=== PATIENT | female | born 1985 | race Caucasian/White ===

== ENCOUNTER 2020-04-02 11:14 | Outpatient (REF) | payer OTHER, SELFPAY ==
--- NOTE | 2020-04-02 11:23 | XR_ITS ---
EXAMINATION: LEFT ANKLE AND LEFT FOOT. CLINICAL INFORMATION: Pain left foot and left ankle appear COMPARISON: None TECHNIQUE: Left foot 3 views. Left ankle 2 views. FINDINGS: LEFT FOOT: There is no visible fracture, dislocation or subluxation seen. The ankle mortise and subtalar joints are normal. The soft tissues are normal. LEFT ANKLE: The ankle mortise and subtalar joints are normal. There is no abnormal joint effusion. No loose body seen. XR/XR foot LT min 3V IMPRESSION: Unremarkable left foot exam. Unremarkable left ankle exam.
--- NOTE | 2020-04-02 11:24 | XR_ITS ---
EXAMINATION: LEFT ANKLE AND LEFT FOOT. CLINICAL INFORMATION: Pain left foot and left ankle appear COMPARISON: None TECHNIQUE: Left foot 3 views. Left ankle 2 views. FINDINGS: LEFT FOOT: There is no visible fracture, dislocation or subluxation seen. The ankle mortise and subtalar joints are normal. The soft tissues are normal. LEFT ANKLE: The ankle mortise and subtalar joints are normal. There is no abnormal joint effusion. No loose body seen. XR/XR ankle LT min 3V IMPRESSION: Unremarkable left foot exam. Unremarkable left ankle exam.
== END 2020-04-02 11:15 | disposition home or self-care (01) ==
LOC: HO.XRAY 11:14
PROVIDERS: PCP Internal Medicine; Visit Provider Internal Medicine
DX: M79.672 Pain in left foot (principal)
CPT/HCPCS: 73610; 73630

== ENCOUNTER 2020-04-09 07:16 | Outpatient (REF) | payer OTHER, SELFPAY | END 2020-04-09 07:17 | disposition home or self-care (01) | LOC: HO.LAB 07:16 | PROVIDERS: Visit Provider Internal Medicine | DX: Z20.822 Contact with and (suspected) exposure to COVID-19 (principal) | CPT/HCPCS: 36415; C9803; U0003; U0005 ==

== ENCOUNTER 2020-04-13 11:51 | Outpatient (REF) | payer OTHER, SELFPAY | END 2020-04-13 11:52 | disposition home or self-care (01) | LOC: HO.LAB 11:51 | PROVIDERS: Visit Provider Internal Medicine | DX: Z20.822 Contact with and (suspected) exposure to COVID-19 (principal) | CPT/HCPCS: 36415; C9803; U0003; U0005 ==

== ENCOUNTER 2020-04-27 11:09 | Outpatient (REF) | payer OTHER, SELFPAY | END 2020-04-27 11:10 | disposition home or self-care (01) | LOC: HO.LAB 11:09 | PROVIDERS: PCP Internal Medicine; Visit Provider Internal Medicine | DX: Z20.822 Contact with and (suspected) exposure to COVID-19 (principal) | CPT/HCPCS: 36415; C9803; U0003; U0005 ==

== ENCOUNTER 2020-05-21 09:23 | Outpatient (REF) | payer OTHER, SELFPAY | END 2020-05-21 09:24 | disposition home or self-care (01) | LOC: HO.LAB 09:23 | PROVIDERS: Visit Provider Internal Medicine | DX: Z20.822 Contact with and (suspected) exposure to COVID-19 (principal) | CPT/HCPCS: 36415; C9803; U0003; U0005 ==

== ENCOUNTER 2020-08-13 08:35 | Emergency (ER) | payer OTHER, SELFPAY ==
[2020-08-13 08:57] VITALS: BP 113/62; PULSE 89; RESP 18; TEMP 36.7; O2SAT 100; BMI 32.3
--- NOTE | 2020-08-13 09:11 | ED.SKABFB ---
HPI - Skin/Abscess/Foreign Bdy General Chief complaint: Skin/Abscess/Foreign Body <ALVA Fonseca Last Filed: 08/13/20 09:50> Stated complaint: L ARM RED SWELLING QUEST BUG BITE <ALVA Fonseca Last Filed: 08/13/20 09:50> Time Seen by Provider: 08/13/20 09:11 <ALVA Fonseca Last Filed: 08/13/20 09:50> History of Present Illness HPI narrative: Patient complains of bug bite to the left forearm which is very itchy but now is very red and the redness is spreading there is no fever there is no wheezing no shortness of breath no other skin rash and no swelling of lips tongue or throat <ALVA Fonseca Last Filed: 08/13/20 09:50> Related Data Home medications: Previous Rx's Medication Instructions Recorded cephalexin 500 mg PO QID 7 Days #28 tab 08/13/20 cetirizine 10 mg PO DAILY PRN #14 cap 08/13/20 hydrocortisone 1 appl TOPICAL BID PRN #20 g 08/13/20 <ALVA Fonseca Last Filed: 08/13/20 09:50> Allergies/Adverse reactions: Allergies Allergy/AdvReac Type Severity Reaction Status Date / Time No Known Allergies Allergy Verified 08/13/20 09:00 [No Known Allergies*] <ALVA Fonseca Last Filed: 08/13/20 09:50> Review of Systems Review of Systems: Left forearm itchy rash Negatives no fever no chills no dizziness no weakness no difficulty breathing or swallowing no throat swelling no tongue swelling no shortness of breath no chest pain no nausea or vomiting no other rash <ALVA Fonseca Last Filed: 08/13/20 09:50> Yes all other systems are reviewed and are negative <ALVA Fonseca Last Filed: 08/13/20 09:50> [facility]LY [facility] Past Medical History Source: nursing notes reviewed <ALVA Fonseca Last Filed: 08/13/20 09:50> Medical History: Medical History (Updated 08/14/20 @ 00:00 by Clau Luevano) Epilepsy <ALVA Fonseca Last Filed: 08/13/20 09:50> Social History Social History: Social History Advance Directives: No Advance Directives Information Provided: No Patient : No <ALVA Fonseca - Last Filed: 08/13/20 09:50> Physical Exam Vital Signs: Vital Signs: Last Vital Signs Temp 98.0 F 08/13/20 08:57 Pulse 89 08/13/20 08:57 Resp 18 08/13/20 08:57 BP 113/62 08/13/20 08:57 Pulse Ox 100 08/13/20 08:57 Body Mass Index 32.3 <ALVA Fonseca - Last Filed: 08/13/20 09:50> Vital Signs: Last Vital Signs Temp 98.0 F 08/13/20 08:57 Pulse 89 08/13/20 08:57 Resp 18 08/13/20 08:57 BP 113/62 08/13/20 08:57 Pulse Ox 100 08/13/20 08:57 Body Mass Index 32.3 <Shiv Marroquin MD - Last Filed: 09/11/20 19:01> General appearance is no acute distress, and cooperative The eyes are not red no discharge The pharynx is clear without swelling of lips tongue or uvula, mucous membranes are moist the voice is normal there is no drooling The neck is supple The chest is clear to auscultation bilateral with full symmetric sounds Heart no murmur Abdomen soft nontender Extremities full range of motion x4 The left forearm volar has a area of redness warmth and very mild tenderness, there is no significant swelling there is full range of motion in elbow and wrist there is no discharge no fluctuance no lymphangitis Skin no other rash <ALVA Fonseca - Last Filed: 08/13/20 09:50> Course Course Course Narrative: Left forearm area of redness after a bug bite 3 days ago is itchy but also painful redness has not been relieved with Claritin at home so patient is advised unlikely that it is infected but if redness does not go away in 24 hours to start the antibiotic <ALVA Fonseca - Last Filed: 08/13/20 09:50> I have reviewed the chart <Shiv Marroquin MD - Last Filed: 09/11/20 19:01> Discharge Plan Discharge Clinical Impression: Insect bite <ALVA Fonseca - Last Filed: 08/13/20 09:50> Patient Disposition: Home, Self-Care <ALVA Fonseca - Last Filed: 08/13/20 09:50> Additional Instructions: This is likely a local reaction to the bug bite with itching and some redness and inflammation so probably best treatment is hydrocortisone cream and Zyrtec for itch If redness does not improve in 1-2 days you could start Keflex antibiotic as skin infection and a local reaction to a bug bite can have a similar appearance Return any time any worse condition or concerns <ALVA Fonseca - Last Filed: 08/13/20 09:50> Prescriptions: New hydrocortisone 2.5 % cream 1 appl topical BID PRN (Reason: itching) Qty: 20 RF: 0 cephalexin 500 mg tablet 500 mg PO QID 7 Days Qty: 28 RF: 0 cetirizine 10 mg capsule 10 mg PO DAILY PRN (Reason: allergy symptoms) Qty: 14 RF: 0 <ALVA Fonseca - Last Filed: 08/13/20 09:50> Interventions: ED Discharge Assessment Last Done: 08/13/20 09:26 <ALVA Fonseca - Last Filed: 08/13/20 09:50> Discharge Date/Time: 08/13/20 09:27 <ALVA Fonseca - Last Filed: 08/13/20 09:50>
== END 2020-08-13 09:27 | disposition home or self-care (01) ==
PROVIDERS: Emergency Provider Emergency Medicine; PCP Internal Medicine
DX: S50.862A Insect bite (nonvenomous) of left forearm, initial encounter (principal); M79.632 Pain in left forearm; W57.XXXA Bitten or stung by nonvenomous insect and other nonvenomous arthropods, initial encounter; Y93.9 Activity, unspecified; Y92.9 Unspecified place or not applicable; Y99.9 Unspecified external cause status
CPT/HCPCS: 99283

== ENCOUNTER 2020-11-15 22:07 | Emergency (ER) | payer OTHER, SELFPAY ==
--- NOTE | ~2020-11-15 | XR_ITS ---
EXAMINATION: XR HAND, RIGHT CLINICAL INFORMATION: Cellulitis and pain COMPARISON: None TECHNIQUE: PA, lateral, and oblique views of the right hand. FINDINGS: Mild, or soft tissue swelling is seen. The bones and soft tissues are otherwise normal. No fracture. Alignment is anatomic. Joint spaces are maintained. No erosions or soft tissue calcifications. XR/XR hand RT min 3V IMPRESSION: Soft tissue swelling, but no osseous abnormality.
[2020-11-15 22:09] VITALS: BP 118/83; PULSE 74; RESP 16; TEMP 36.9; O2SAT 98; BMI 33.5
--- NOTE | 2020-11-16 00:59 | ED.EXTPRO ---
HPI - Extremity Problem General Chief complaint: Extremity Injury, Upper Stated complaint: Hand swelling Time Seen by Provider: 11/15/20 23:49 Source: patient Mode of arrival: ambulatory Limitations: no limitations History of Present Illness HPI Narrative: 34-year-old female presents with right hand pain, swelling, after being stung by a bee 2 days ago. States the redness and swelling has increased and now is traveling up her arm. MD Complaint: extremity pain and extremity swelling Onset (ago): day(s) (2) Pain Consistency: constant Location: right and upper extremity Severity scale (1-10): 7 Quality: burning and aching Relieving factors: nothing Exacerbating factors: range of motion and palpation Associated symptoms: denies other symptoms Related Data Previous Rx's Medication Instructions Recorded cephalexin 500 mg tablet 500 mg PO QID 7 Days #28 tab 08/13/20 cetirizine 10 mg capsule 10 mg PO DAILY PRN #14 cap 08/13/20 hydrocortisone 2.5 % topical cream 1 appl TOPICAL BID PRN #20 g 08/13/20 amoxicillin 875 mg-potassium 1 tab PO Q12H 10 Days #20 tab 11/16/20 clavulanate 125 mg tablet (Augmentin) doxycycline monohydrate 100 mg 100 mg PO BID 10 Days #20 cap 11/16/20 capsule Allergies Allergy/AdvReac Type Severity Reaction Status Date / Time No Known Allergies Allergy Verified 08/13/20 09:00 [No Known Allergies*] Review of Systems Review of Systems: Constitutional: No Fever, No Chills ENT/Mouth: No Ear Pain, No Hoarseness, No sore throat Eyes: No Eye Pain, No Swelling, No Redness, No Foreign Body Cardiovascular: No Chest Pain, No SOB Respiratory: No Cough, No Dyspnea Gastrointestinal: No Nausea, No Vomiting, No Diarrhea, No abdominal Pain Genitourinary: No Dysuria, No Hematuria Musculoskeletal: positive hand arm pain and swelling No Myalgias, No Joint Swelling Skin: Positive erythema to right hand and forearm, No Skin lacerations, No rash Neuro: No Weakness, No Numbness, No Paresthesias, No Loss of Consciousness, No Dizziness, No Headache Psych: No Anxiety/Panic, No Depression Heme/Lymph: no easy bruising, no Lymphadenopathy Endocrine: No Polyuria, No Polydipsia Yes all other systems are reviewed and are negative [facility] Past Medical History Attestation statement: The following information was validated with the patient. Source: old records reviewed Medical History (Updated 11/16/20 @ 02:48 by Courtney Villalpando NP) Epilepsy Social History Social History Advance Directives: No Advance Directives Information Provided: No Physical Exam Vital Signs: Vital Signs: Last Vital Signs Temp 98.2 F 11/16/20 02:00 Pulse 70 11/16/20 02:32 Resp 16 11/16/20 02:32 BP 122/82 11/16/20 02:32 Pulse Ox 100 11/16/20 02:32 Body Mass Index 33.5 Appearance: Alert. Oriented X3. No acute distress. Eyes: Pupils equal, round and reactive to light. ENT: Pharynx normal. Neck: Normal inspection. Neck supple. CVS: Normal heart rate and rhythm. Pulses normal. Respiratory: No respiratory distress. Breath sounds normal. Abdomen: Soft and nontender. Skin: Skin warm and dry. Normal skin color. Normal skin turgor. Extremities: Positive right hand and forearm erythema, swelling noted, full range of motion and strength, brisk capillary refill in equal pulses. Neuro: No motor deficit. No sensory deficit. Cranial nerves 2-12 intact. Course Course Course Narrative: 34-year-old female presents with right hand erythema, swelling, and increased pain after 2 days. Was stung by a bee and the redness and swelling has increased over the past 2 days. Multiple attempts for labs, unable to obtain any labs, I did discuss this in detail with patient, will give p.o. antibiotics, IV antibiotics were canceled. Patient does understand signs and symptoms requiring emergent intervention. Patient verbalized understanding of and agrees plan of care discharge home. MDM - Extremity (Nontraumatic) Differential Diagnosis Differential diagnosis: Likely cellulitis Medical Records Attestation: I reviewed the patient's medical records. Imaging Data Hand x-ray: Attestation: I personally reviewed and interpreted this imaging study as follows: Radiologist's impression: EXAMINATION: XR HAND, RIGHT CLINICAL INFORMATION: Cellulitis and pain? COMPARISON: None? TECHNIQUE: PA, lateral, and oblique views of the right hand. FINDINGS: Mild, or soft tissue swelling is seen. The bones and soft tissues are otherwise normal. No fracture. Alignment is anatomic. Joint spaces are maintained. No erosions or soft tissue calcifications.? XR/XR hand RT min 3V IMPRESSION: Soft tissue swelling, but no osseous abnormality. Discharge Plan Discharge Clinical Impression: Cellulitis Qualifiers: Site of cellulitis: extremity Site of cellulitis of extremity: upper extremity Laterality: right Qualified Code(s): L03.113 - Cellulitis of right upper limb Patient Disposition: Home, Self-Care Instructions: Cellulitis (ED), Warm Compress or Soak (ED) Additional Instructions: You were evaluated for cellulitis of the right hand. X-rays are negative for bone involvement. Please take Augmentin and doxycycline twice a day for the next 10 days. Please wear long sleeves and had while going out to the son. Doxycycline has a significant reaction when your skin is exposed to sunlight. If you developed fevers, chills, nausea, vomiting, palpitations or diaphoresis or any other concerning symptoms please return to emergency department immediately for evaluation as this may be signs and symptoms of sepsis. Thank you for choosing this emergency department for evaluation. Please follow-up with primary care physician as needed. Return to the emergency department for any new, concerning, or worsening symptoms. Prescriptions: New amoxicillin-pot clavulanate [Augmentin] 875-125 mg tablet 1 tab PO Q12H 10 Days Qty: 20 RF: 0 doxycycline monohydrate 100 mg capsule 100 mg PO BID 10 Days Qty: 20 RF: 0 No Action hydrocortisone 2.5 % cream 1 appl topical BID PRN (Reason: itching) Qty: 20 RF: 0 cephalexin 500 mg tablet 500 mg PO QID 7 Days Qty: 28 RF: 0 cetirizine 10 mg capsule 10 mg PO DAILY PRN (Reason: allergy symptoms) Qty: 14 RF: 0
[2020-11-16 02:00] VITALS: BP 105/72; PULSE 64; RESP 16; TEMP 36.8; O2SAT 100
[2020-11-16] MEDS: Amoxicillin/Potassium Clav 875 MG TABLET PO (02:12)
--- NOTE | 2020-11-16 02:29 | PC.NURSE ---
Received pt from [facility]. Provider aware that we were unable to collect labs or placed IV. Po Medication given per MAR. Marked flaco area with boarder, educated pt if area worsen beyond boarder to call provider or return to the er to be evaluated.
[2020-11-16 02:32] VITALS: BP 122/82; PULSE 70; RESP 16; O2SAT 100
== END 2020-11-16 03:16 | disposition home or self-care (01) ==
PROVIDERS: Emergency Provider Student in an Organized Health Care Education/Training Program; PCP Internal Medicine
DX: L03.113 Cellulitis of right upper limb (principal)
CPT/HCPCS: 73130; 96361; 96374; 99283; 99284

== ENCOUNTER 2020-12-04 09:25 | Outpatient (REF) | payer OTHER, SELFPAY ==
[2020-12-04 09:58] LABS: MANUAL DIFF FLAG NO
[2020-12-04 10:12] LABS: Basophils Percent Auto 0.2 % (0-2); Eosinophils Percent Auto 0.4 % (0-4); Hematocrit 37.4 % (37-47); Hemoglobin 11.9 g/dl (12.0-16.0); Imm Gran Abs Auto 0.01 X10*3/uL (0.00-0.03); Imm Gran Pct Auto 0.2 % (0.0-0.4); Lymphocytes Absolute Auto 1.1 X10*3/uL (1.2-4.9); Lymphocytes Percent Auto 24.3 % (20-40); Mean Corpuscular HGB Conc 31.8 g/dl (31.0-35.0); Mean Corpuscular Hemoglobin 25.6 pg (27.0-33.0); Mean Corpuscular Volume 80.4 fL (80-98); Mean Platelet Volume 11.1 fL (9.4-12.3); Monocytes Absolute Auto 0.3 X10*3/uL (0.1-1.2); Monocytes Percent Auto 5.6 % (2-11); Neutrophils Absolute Auto 3.1 X10*3/uL (2.0-8.3); Neutrophils Percent Auto 69.3 % (45-73); Platelet Count 189 X10*3/uL (160-400); Red Blood Count 4.65 X10*6/uL (4.20-5.50); Red Cell Distribution Width 14.3 % (11.0-16.0); White Blood Count 4.5 X10*3/uL (4.8-10.8)
[2020-12-04 10:53] LABS: Alanine Aminotransferase 15 U/L (0-31); Albumin Level 4.2 g/dL (3.5-5.0); Alkaline Phosphatase 98 U/L (39-117); Anion Gap 10 (12-20); Aspartate Amino Transferase 15 U/L (5-31); Bilirubin Total 0.3 mg/dL (0.0-1.0); Blood Urea Nitrogen 9 mg/dL (9-16); Calcium 10.5 mg/dL (8.4-10.2); Carbon Dioxide 27 mmol/L (22-29); Chloride 105 mmol/L (96-108); Cholesterol 189 mg/dL; Estimated Glomerular Filt Rate > 60; Glucose Random 96 mg/dL (60-115); HDL Cholesterol 58 mg/dL; LDL Cholesterol Calculated 110 mg/dl; Potassium 4.4 mmol/L (3.3-5.1); Sodium 138 mmol/L (135-145); Triglycerides 106 mg/dL
[2020-12-08 07:16] LABS: Oxcarbazepine 11.6 mcg/mL (8.0-35.0)
== END 2020-12-04 09:26 | disposition home or self-care (01) ==
LOC: HO.LAB 09:25
PROVIDERS: Absent Provider Internal Medicine Hematology & Oncology; PCP Internal Medicine; Visit Provider Internal Medicine
DX: Z00.00 Encounter for general adult medical examination without abnormal findings (principal); Z13.31 Encounter for screening for depression; C71.9 Malignant neoplasm of brain, unspecified; D50.8 Other iron deficiency anemias; G40.209 Localization-related (focal) (partial) symptomatic epilepsy and epileptic syndromes with complex partial seizures, not intractable, without status epilepticus
CPT/HCPCS: 36415; 80053; 80061; 80339; 85025

== ENCOUNTER 2020-12-25 14:06 | Outpatient (REF) | payer OTHER, SELFPAY ==
[2020-12-25 14:44] LABS: COVID-19 Test Negative (Negative)
== END 2020-12-25 14:07 | disposition home or self-care (01) ==
LOC: HO.LAB 14:06
PROVIDERS: PCP Internal Medicine; Visit Provider Internal Medicine
DX: Z20.822 Contact with and (suspected) exposure to COVID-19 (principal)
CPT/HCPCS: 36415; 87635; C9803

== ENCOUNTER 2021-02-25 11:40 | Outpatient (REF) | payer OTHER, SELFPAY ==
[2021-02-25 12:54] LABS: Anion Gap 7 (12-20); Blood Urea Nitrogen 9 mg/dL (9-16); Calcium 10.3 mg/dL (8.4-10.2); Carbon Dioxide 30 mmol/L (22-29); Chloride 107 mmol/L (96-108); Estimated Glomerular Filt Rate > 60; Glucose Random 84 mg/dL (60-115); Potassium 4.5 mmol/L (3.3-5.1); Sodium 139 mmol/L (135-145)
== END 2021-02-25 11:41 | disposition home or self-care (01) ==
LOC: HO.LAB 11:40
PROVIDERS: PCP Internal Medicine; Visit Provider Psychiatry & Neurology Neurology
DX: G40.209 Localization-related (focal) (partial) symptomatic epilepsy and epileptic syndromes with complex partial seizures, not intractable, without status epilepticus (principal)
CPT/HCPCS: 36415; 80048

== ENCOUNTER 2021-11-18 09:47 | Outpatient (REF) | payer OTHER, SELFPAY ==
[2021-11-18 10:35] LABS: COVID-19 Test Negative (Negative); IDNOW Serial# 9DB6401D
== END 2021-11-18 09:48 | disposition home or self-care (01) ==
LOC: HO.LAB 09:47
PROVIDERS: Visit Provider Internal Medicine
DX: Z20.822 Contact with and (suspected) exposure to COVID-19 (principal)
CPT/HCPCS: 87635; C9803

== ENCOUNTER 2022-01-15 14:19 | Outpatient (REF) | payer OTHER, SELFPAY ==
[2022-01-15 15:01] LABS: COVID-19 Test Positive (Negative)
== END 2022-01-15 14:20 | disposition home or self-care (01) ==
LOC: HO.LAB 14:19
PROVIDERS: Visit Provider Internal Medicine
DX: Z20.822 Contact with and (suspected) exposure to COVID-19 (principal)
CPT/HCPCS: 87635; C9803

== ENCOUNTER 2022-01-20 09:06 | Outpatient (REF) | payer OTHER, SELFPAY ==
[2022-01-20 09:58] LABS: COVID-19 Test Negative (Negative); IDNOW Serial# 55D5AD1C
== END 2022-01-20 09:07 | disposition home or self-care (01) ==
LOC: HO.LAB 09:06
PROVIDERS: Visit Provider Internal Medicine
DX: Z20.822 Contact with and (suspected) exposure to COVID-19 (principal)
CPT/HCPCS: 87635; C9803

== ENCOUNTER 2022-01-23 14:46 | Outpatient (REF) | payer OTHER, SELFPAY ==
[2022-01-23 15:28] LABS: MANUAL DIFF FLAG NO
[2022-01-23 16:17] LABS: Basophils Percent Auto 0.2 % (0-2); Eosinophils Percent Auto 0.2 % (0-4); Hematocrit 34.2 % (37.0-47.0); Hemoglobin 10.9 g/dl (12.0-16.0); Imm Gran Abs Auto 0.01 X10*3/uL (0.00-0.03); Imm Gran Pct Auto 0.2 % (0.0-0.4); Lymphocytes Absolute Auto 1.1 X10*3/uL (1.2-4.9); Lymphocytes Percent Auto 18.4 % (20-40); Mean Corpuscular HGB Conc 31.9 g/dl (31.0-35.0); Mean Corpuscular Hemoglobin 25.3 pg (27.0-33.0); Mean Corpuscular Volume 79.4 fL (80.0-98.0); Mean Platelet Volume 12.4 fL (9.4-12.3); Monocytes Absolute Auto 0.5 X10*3/uL (0.1-1.2); Monocytes Percent Auto 8.5 % (2-11); Neutrophils Absolute Auto 4.2 x10*3/uL (2.0-8.3); Neutrophils Percent Auto 72.5 % (45-73); Platelet Count 197 X10*3/uL (160-400); Red Blood Count 4.31 X10*6/uL (4.20-5.50); Red Cell Distribution Width 14.6 % (11.0-16.0); White Blood Count 5.8 X10*3/uL (4.8-10.8)
[2022-01-23 16:35] LABS: Alanine Aminotransferase 16 U/L (0-31); Albumin Level 3.9 g/dL (3.5-5.0); Alkaline Phosphatase 103 U/L (39-117); Anion Gap 14 (12-20); Aspartate Amino Transferase 15 U/L (5-31); Bilirubin Total 0.3 mg/dL (0.0-1.0); Blood Urea Nitrogen 8 mg/dL (9-16); Calcium 9.9 mg/dL (8.4-10.2); Carbon Dioxide 24 mmol/L (22-29); Chloride 105 mmol/L (96-108); Cholesterol 179 mg/dL; Estimated Glomerular Filt Rate > 60; Glucose Random 82 mg/dL (60-115); HDL Cholesterol 51 mg/dL; LDL Cholesterol Calculated 116 mg/dl; Potassium 3.8 mmol/L (3.3-5.1); Sodium 139 mmol/L (135-145); Total Protein 6.3 g/dL (6.5-8.0); Triglycerides 61 mg/dL
[2022-01-23 16:56] LABS: Ferritin 7 ng/mL (10-122)
== END 2022-01-23 14:47 | disposition home or self-care (01) ==
LOC: HO.LAB 14:46
PROVIDERS: PCP Internal Medicine; Visit Provider Internal Medicine
DX: Z00.00 Encounter for general adult medical examination without abnormal findings (principal); D64.89 Other specified anemias; R10.9 Unspecified abdominal pain; R19.7 Diarrhea, unspecified
CPT/HCPCS: 36415; 80053; 80061; 82728; 85025

== ENCOUNTER 2022-07-21 10:22 | Outpatient (REF) | payer OTHER, SELFPAY ==
[2022-07-21 10:39] LABS: MANUAL DIFF FLAG NO
[2022-07-21 11:05] LABS: Basophils Percent Auto 0.2 % (0-2); Eosinophils Percent Auto 0.2 % (0-4); Hematocrit 36.2 % (37.0-47.0); Hemoglobin 11.2 g/dl (12.0-16.0); Imm Gran Abs Auto 0.02 X10*3/uL (0.00-0.03); Imm Gran Pct Auto 0.4 % (0.0-0.4); Lymphocytes Percent Auto 20.8 % (20-40); Mean Corpuscular HGB Conc 30.9 g/dl (31.0-35.0); Mean Corpuscular Hemoglobin 24.3 pg (27.0-33.0); Mean Corpuscular Volume 78.5 fL (80.0-98.0); Monocytes Absolute Auto 0.4 X10*3/uL (0.1-1.2); Monocytes Percent Auto 8.6 % (2-11); Neutrophils Absolute Auto 3.4 x10*3/uL (2.0-8.3); Neutrophils Percent Auto 69.8 % (45-73); Platelet Count 205 X10*3/uL (160-400); Red Blood Count 4.61 X10*6/uL (4.20-5.50); Red Cell Distribution Width 15.9 % (11.0-16.0); White Blood Count 4.9 X10*3/uL (4.8-10.8)
== END 2022-07-21 10:23 | disposition home or self-care (01) ==
LOC: HO.LAB 10:22
PROVIDERS: PCP Internal Medicine; Visit Provider Internal Medicine
DX: N30.01 Acute cystitis with hematuria (principal); D50.8 Other iron deficiency anemias
CPT/HCPCS: 36415; 85025

== ENCOUNTER 2022-12-04 09:43 | Outpatient (REF) | payer OTHER, SELFPAY ==
[2022-12-04 10:33] LABS: COVID-19 Test Negative (Negative); IDNOW Serial# 08D9AD1C
== END 2022-12-04 09:44 | disposition home or self-care (01) ==
LOC: HO.LAB 09:43
PROVIDERS: PCP Internal Medicine; Visit Provider Internal Medicine
DX: Z20.822 Contact with and (suspected) exposure to COVID-19 (principal)
CPT/HCPCS: 87635

== ENCOUNTER 2023-04-01 17:59 | Emergency (ER) | payer OTHER, SELFPAY ==
--- NOTE | 2023-04-01 | ECG_ITS ---
Test Reason : CP Blood Pressure : / mmHG Vent. Rate : 077 BPM Atrial Rate : 077 BPM P-R Int : 144 ms QRS Dur : 076 ms QT Int : 342 ms P-R-T Axes : 050 028 027 degrees QTc Int : 387 ms Normal sinus rhythm Normal ECG When compared with ECG of 19-AUG-2014 13:54, No significant change was found Referred By: Generic ED Physician Electronically Signed By:Willard Barrera
--- NOTE | ~2023-04-01 | XR_ITS ---
EXAMINATION: XR CHEST CLINICAL INFORMATION: Chest pain COMPARISON: None available. TECHNIQUE: Frontal view of the chest was obtained. FINDINGS: No significant abnormality is noted involving the heart, lungs, mediastinum, bony thorax or soft tissues. XR/XR chest 1V IMPRESSION: Unremarkable chest examination.
[2023-04-01 18:11] VITALS: BP 130/79; PULSE 76; RESP 18; TEMP 36.3; O2SAT 96; BMI 31.5
--- NOTE | 2023-04-01 18:11 | ED_ITS ---
HPI - Chest Pain General Chief Complaint: Chest Pain Stated Complaint: chest pain Time Seen by Provider: 04/01/23 22:22 Source: patient, RN notes reviewed and old records reviewed Mode of arrival: ambulatory Limitations: no limitations History of Present Illness HPI narrative: 37-year-old female presents for evaluation of chest pain. Patient reports on and off chest pain for approximately 3 months She denies any associated symptoms including shortness of breath, palpitations She denies any alleviating or relieving factor She states the pain is random Denies any history of cardiac disease. Denies any history of DVT or PE Patient admits to having COVID over a week ago Related Data Previous Rx's Medication Instructions Recorded cephalexin 500 mg tablet 500 mg PO QID 7 days #28 tabs 08/13/20 cetirizine 10 mg capsule 10 mg PO DAILY PRN allergy 08/13/20 symptoms #14 caps hydrocortisone 2.5 % topical cream 1 appl topical BID PRN itching #20 08/13/20 grams amoxicillin 875 mg-potassium 1 tab PO Q12H 10 days #20 tabs 11/16/20 clavulanate 125 mg tablet (Augmentin) doxycycline monohydrate 100 mg 100 mg PO BID 10 days #20 caps 11/16/20 capsule Allergies Allergy/AdvReac Type Severity Reaction Status Date / Time No Known Allergies Allergy Verified 04/01/23 18:10 [No Known Allergies*] Review of Systems 2 Constitutional: Constitutional: Denies chills and Denies fever(s) Cardiovascular: Cardiovascular: Reports chest pain, Reports chest pain at rest, Reports chest pain with activity, Denies Epigastric Pain and Denies dyspnea Respiratory: Respiratory: Denies cough and Denies dyspnea Gastrointestinal: Gastrointestinal: Denies abdominal pain, Denies nausea and Denies vomiting Musculoskeletal: Musculoskeletal: Denies back pain Integumentary/Breasts: Skin/Breast: Denies rash PMFSH Past Medical History Medical History (Updated 04/01/23 @ 22:44 by Pop Ash) Epilepsy Social History Social History Smoked in Last 30 Days: No Use of substances other than those prescribed or required for medical reasons: No Advance Directives: No Advance Directives Information Provided: No Patient : No Physical Exam 2 Vital Signs: Vital Signs: Last Vital Signs Temp 98.0 F 04/01/23 22:26 Pulse 90 04/01/23 22:26 Resp 16 04/01/23 22:26 BP 108/60 04/01/23 22:26 Pulse Ox 100 04/01/23 22:26 O2 Del Method Room Air 04/01/23 22:26 BMI result Body Mass Index 31.5 Const: General: healthy appearing, comfortable, no acute distress, alert and awake Nutritional Appearance: well nourished Orientation/consciousness: p atient oriented x3 HEENT: Head: Yes normocephalic and Yes atraumatic Eyes: Eyelids: Yes eyelids normal Conjunctivae: conjunctivae normal S clerae: sclerae normal Corneas: corneas normal Pupils: Equal, round and reactive pupils present EOM: EOMs intact bilaterally Neck: Neck: Yes full ROM Resp: Effort & Inspection: normal respiratory effort, able to speak in complete sentences and not labored GI: Inspection: No distended Palpation (GI): Soft to palpation, not firm, nontender, no guarding and not rigid Skin: General skin exam: elasticity normal Neuro: General: patient oriented x3 Cranial nerves: Yes Equal, round and reactive pupils present and Yes Bilaterally intact EOM present Cognition (Neuro): normal cognition Course Course Course Narrative: RME: 37 year-old F w/ PMHx COVID 19 on presenting to the ED c/o chest pain, nausea & dizziness x few months. denies SOB EKG, Labs, UA, CXR ordered Full HPI, ROS and PE to be performed by primary ED provider. Medical Decision Making Medical Decision Making [facility] Narrative: 37-year-old female presents for evaluation of left upper chest wall pain. She states the pain is random, unrelated to exertion or rest, but she can have the pain during both. She had an EKG that was normal sinus rhythm with a rate of [address] segment elevations or depressions. No ectopy. Her pain has been going on for 3 months and she has an undetectable troponin. She rules out for ACS. She is PERC negative. Her chest x-ray was clear without infiltrates, pneumothorax or effusions. To musculoskeletal origin, costochondritis as she recently had COVID-19. She is stable for discharge at this time to follow-up with her PCP Differential Diagnosis Differential Diagnoses: The differential diagnosis associated with the presentation includes Chest pain Costochondritis ACS Pneumonia Chest wall pain Admission/Observation Consideration of admission/observation: Escalation of care including admission/observation considered Patient rules out for ACS and does not require admission Lab Data MDM Lab Attestation statement: I reviewed the patient's lab results. Mild leukopenia with a white count of 4.2. She also has a mild microcytic anemia consistent with her recent baseline. Patient's electrolytes are within normal limits, her anion gap is 11. Calcium is just above normal at 10.4 which may be related to some degree of dehydration. However she has no evidence of VERA. LFTs within normal limits. Troponin undetectable 04/01/23 18:29 04/01/23 18:29 Labs: Lab Results 04/01/23 04/01/23 Range/Units 18:29 21:45 WBC 4.2 L (4.8-10.8) X10*3/uL RBC 4.80 (4.20-5.50) X10*6/uL Hgb 11.5 L (12.0-16.0) g/dl Hct 36.5 L (37.0-47.0) % MCV 76.0 L (80.0-98.0) fL MCH 24.0 L (27.0-33.0) pg MCHC 31.5 (31.0-35.0) g/dl RDW 14.5 (11.0-16.0) % Plt Count 225 (160-400) X10*3/uL MPV 11.4 (9.4-12.3) fL Immature Gran % (Auto) 0.2 (0.0-0.4) % Neut % (Auto) 64.8 (45-73) % Lymph % (Auto) 27.3 (20-40) % [place]oshone % (Auto) 7.3 (2-11) % Eos % (Auto) 0.2 (0-4) % Baso % (Auto) 0.2 (0-2) % Lymph # (Auto) 1.2 (1.2-4.9) X10*3/uL [place]oshone # (Auto) 0.3 (0.1-1.2) X10*3/uL Eos # (Auto) 0.0 (0.0-0.4) X10*3/uL Baso # (Auto) 0.0 (0.0-0.2) X10*3/uL Abs Immat Gran (auto) 0.01 (0.00-0.03) X10*3/uL Absolute Neuts (auto) 2.7 (2.0-8.3) x10*3/uL Absolute Nucleated RBC 0.000 (0.0-0.012) X10*3/uL Nucleated RBC % (auto) 0.0 (0.0-0.2) /100WBC Sodium 138 (135-145) mmol/L Potassium 3.9 (3.3-5.1) mmol/L Chloride 105 (96-108) mmol/L Carbon Dioxide 26 (22-29) mmol/L Anion Gap 11 L (12-20) BUN 10 (9-16) mg/dL Creatinine 0.75 (0.5-1.4) mg/dL Estim Creat Clear Calc 106.1 Estimated GFR > 60 Random Glucose 94 (60-115) mg/dL Calcium 10.4 H (8.4-10.2) mg/dL Magnesium 2.0 (1.6-2.6) mg/dL Total Bilirubin 0.3 (0.0-1.0) mg/dL Direct Bilirubin 0.1 (0.0-0.5) mg/dL AST 15 (5-31) U/L ALT 14 (0-31) U/L Alkaline Phosphatase 100 (39-117) U/L Troponin I High Sens < 2.7 (<3.5-17.0) ng/L Total Protein 7.2 (6.5-8.0) g/dL Albumin 4.2 (3.5-5.0) g/dL Urine Color Yellow Urine Appearance Cloudy Urine pH 7.5 (5.0-9.0) Ur Specific [place] 1.015 (1.005-1.025) Urine Protein Negative (Neg-Trace) mg/dL Urine Glucose (UA) Negative (Negative) mg/dL Urine Ketones Negative (Negative) mg/dL Urine Blood Negative (Negative) Urine Nitrite Negative (Negative) Ur Leukocyte Esterase Negative (Negative) Urine Test NEGATIVE (NEGATIVE) Independent Interpretation I performed an independent interpretation of an: EKG (As above) and Plain X-Ray (As above) Radiology Impression Discussion of test interpretation with radiology: I have reviewed the radiologist's reading. (Unremarkable chest examination) Discharge Plan Discharge Clinical Impression: Chest pain Patient Disposition: Home, Self-Care Instructions: Chest Pain (ED) Additional Instructions: Your workup in the emergency department today was reassuring. This includes your blood work, EKG, chest x-ray You may use Motrin/Tylenol for any further pain Follow-up with your primary doctor or return for new or worsening symptoms Prescriptions: No Action hydrocortisone 2.5 % cream 1 appl topical BID PRN (Reason: itching) Qty: 20 0RF cephalexin 500 mg tablet 500 mg PO QID 7 Days Qty: 28 0RF cetirizine 10 mg capsule 10 mg PO DAILY PRN (Reason: allergy symptoms) Qty: 14 0RF amoxicillin-pot clavulanate [Augmentin] 875-125 mg tablet 1 tab PO Q12H 10 Days Qty: 20 0RF doxycycline monohydrate 100 mg capsule 100 mg PO BID 10 Days Qty: 20 0RF Interventions: ED Discharge Assessment Last Done: 04/01/23 22:54 Discharge Date/Time: 04/01/23 22:55
[2023-04-01 18:35] LABS: MANUAL DIFF FLAG NO
[2023-04-01 18:36] LABS: Basophils Percent Auto 0.2 % (0-2); Eosinophils Percent Auto 0.2 % (0-4); Hematocrit 36.5 % (37.0-47.0); Hemoglobin 11.5 g/dl (12.0-16.0); Imm Gran Abs Auto 0.01 X10*3/uL (0.00-0.03); Imm Gran Pct Auto 0.2 % (0.0-0.4); Lymphocytes Absolute Auto 1.2 X10*3/uL (1.2-4.9); Lymphocytes Percent Auto 27.3 % (20-40); Mean Corpuscular HGB Conc 31.5 g/dl (31.0-35.0); Mean Platelet Volume 11.4 fL (9.4-12.3); Monocytes Absolute Auto 0.3 X10*3/uL (0.1-1.2); Monocytes Percent Auto 7.3 % (2-11); Neutrophils Absolute Auto 2.7 x10*3/uL (2.0-8.3); Neutrophils Percent Auto 64.8 % (45-73); Platelet Count 225 X10*3/uL (160-400); Red Cell Distribution Width 14.5 % (11.0-16.0); White Blood Count 4.2 X10*3/uL (4.8-10.8)
[2023-04-01 18:50] LABS: Alanine Aminotransferase 14 U/L (0-31); Albumin Level 4.2 g/dL (3.5-5.0); Alkaline Phosphatase 100 U/L (39-117); Anion Gap 11 (12-20); Aspartate Amino Transferase 15 U/L (5-31); Bilirubin Direct 0.1 mg/dL (0.0-0.5); Bilirubin Total 0.3 mg/dL (0.0-1.0); Blood Urea Nitrogen 10 mg/dL (9-16); Calcium 10.4 mg/dL (8.4-10.2); Carbon Dioxide 26 mmol/L (22-29); Chloride 105 mmol/L (96-108); Creatinine Clr Calc Pharmacy 106.1; Estimated Glomerular Filt Rate > 60; Glucose Random 94 mg/dL (60-115); Potassium 3.9 mmol/L (3.3-5.1); Sodium 138 mmol/L (135-145); Total Protein 7.2 g/dL (6.5-8.0)
[2023-04-01 19:00] LABS: Troponin-I High Sensitivity < 2.7 ng/L (<3.5-17.0)
[2023-04-01 21:37] VITALS: BP 115/76; PULSE 68; RESP 16; TEMP 36.8; O2SAT 100
[2023-04-01 22:01] LABS: Appearance Urine Cloudy; Color Urine Yellow; Glucose Urine UA Negative (Negative); Leukocyte Esterase Urine Negative (Negative); Nitrite Urine Negative (Negative); PH 7.5 (5.0-9.0); Specific Gravity - Urine 1.015 (1.005-1.025); Urine Blood Negative (Negative); Urine Ketones Negative (Negative); Urine Protein Negative (Neg-Trace)
[2023-04-01 22:02] LABS: UPreg QC Valid YES; Urine Pregnancy NEGATIVE (NEGATIVE)
[2023-04-01 22:25] VITALS: BP 106/61; PULSE 84
[2023-04-01 22:26] VITALS: BP 108/60; BP 110/70; PULSE 90; PULSE 91; RESP 16; TEMP 36.7; O2SAT 100
--- NOTE | 2023-04-01 22:27 | MHC.EDTECH ---
This Tech assumed care of this PT. Pt changed into hospital gown and placed on roll wrapper. Orthostatic vitals done and documented
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
--- OUTSIDE RECORDS SUMMARY | 2023-04-01 22:30 | XMS_ITS | Continuity of Care Document ---
Author Name Unknown Organization [facility] ter Address [address] [place] [address]- Care Team Providers Care Structural Manager Name Role Phone Marion Hinojosa MD Primary Care Physician [place] [facility] [place] - 11/26/[address] [address]- Discharge Disposition: A-D/C Home Attending Physician: Lake Puckett MD Admitting Physician: [place] Puckett MD Referring Physician: Not on Staff, Referring MD Allergies, Adverse Reactions, Alerts Substance Reaction Severity Status NKA Active Immunizations Given and Recorded Vaccine Date Status Refusal Reason tetanus/diphtheria/pertussis, acel(Tdap) 11/21/20 Given tetanus/diphtheria/pertussis, acel(Tdap) 08/10/12 Given Influenza Vaccine (oldterm) 1 02/03/11 Given 1Admin Note: VIS GIVEN [id number] Medications Bactrim SS Tablet 1, tablet, By [...] Most recent to oldest [Reference Range]: 1 Oxygen Saturation [94-100 %] 100 % (11/26/20 11:06 AM) Pulse Rate [55-90 bpm] 85 bpm (11/26/20 11:06 AM) Blood Pressure [90-138/55-84 mm Hg] 130/ 67mm Hg (11/26/20 11:06 AM) Respiratory Rate [16-30 br/min] 16 br/mi n (11/26/20 11:06 AM) Temperature [96.8-100.4 DegF] 98 DegF (11/26/20 11:06 AM) Mode of Delivery (Oxygen) Room air (11/26/20 11:06 AM) Blood pressure sites Arm, right (11/26/20 11:06 AM) Temperature Route Oral (11/26/20 11:06 AM) Social History Social History Type Response Smoking Status Former smoker; Tobac co user in household: No entered on: 12/12/14 Sex
--- OUTSIDE RECORDS SUMMARY | 2023-04-01 22:30 | XMS_ITS | Continuity of Care Document ---
Author Name Unknown Organization [facility] ter Address [address] [place] [address]- Care Team Providers Care Health Nurse Name Role Phone Marion Hinojosa MD Primary Care Physician [phone] [place] [facility] [place] - 11/13/[address] [address]- Discharge Disposition: A-D/C Walkout Attending Physician: Not on Staff, Attending MD Admitting Physician: Not on Staff, Admitting MD Referring Physician: Not on Staff, Referring MD Allergies, Adverse Reactions, Alerts No Known Allergies Immunizations Given and Recorded Vaccine Date Status Refusal Reason tetanus/diphtheria/pertussis, acel(Tdap) 11/21/20 Given tetanus/diphtheria/pertussis, acel(Tdap) 08/10/12 Given Influenza Vaccine (oldterm) 1 02/03/11 Given 1Admin Note: VIS GIVEN [id number] Medications OXcarbazepine 300 mg oral tablet 300 [...] Range]: 1 2 3 Height 165 cm (11/12/21 5:28 PM) Oxygen Saturation [94-100 %] 100 % (11/12/21 10:16 PM) 100 % (11/12/21 7:47 PM) 100 % (11/12/21 5:28 PM) Pulse Rate [55-90 bpm] 72 bpm (11/12/21 10:16 PM) 71 bpm (11/12/21 7:47 PM) 80 bpm (11/12/21 5:28 PM) Blood Pressure [90-138/55-84 mm Hg] 113/71mm Hg (11/12/21 10:16 PM) 124/75mm Hg (11/12/21 7:47 PM) 115/69mm Hg (11/12/21 5:28 PM) Respiratory Rate [16-30 br/min] 20 br/min (11/12/21 5:28 PM) Temperature [96.8-100.4 DegF] 98.3 DegF (11/12/21 10:16 PM) 98 DegF (11/12/21 7:47 PM) 98.1 DegF (11/12/21 5:28 PM) Mode of Delivery (Oxygen) Room air (11/12/21 10:16 PM) Room air (11/12/21 7:47 PM) Room air (11/12/21 5:28 PM) Blood pressure sites Arm, right (11/12/21 10:16 PM) Arm, right (11/12/21 7:47 PM) Arm, right (11/12/21 5:28 PM) Temperature Route Oral (11/12/21 10:16 PM) Oral (11/12/21 7:47 PM) Oral (11/12/21 5:28 PM) Dry Weight 86.5 kg (11/12/21 5:28 PM) Social History Social History Type Response Smoking Status Former smoker; Tobac co user in household: No entered on: 12/12/14 Sex Care Team Personnel Name: Marion Hinojosa MD Address: [address] [place] [address] [address] Marion Hinojosa MD [place], [facility]
== END 2023-04-01 22:55 | disposition home or self-care (01) ==
PROVIDERS: Physician Assistant; Emergency Provider Student in an Organized Health Care Education/Training Program; PCP Internal Medicine
DX: R07.89 Other chest pain (principal); Z79.899 Other long term (current) drug therapy
CPT/HCPCS: 36415; 71045; 80048; 80076; 81003; 81025; 83735; 84484; 85025; 93005; 99283; 99285

== ENCOUNTER → 2023-04-01 18:24 | Outpatient (BNV) | payer OTHER, SELFPAY | PROVIDERS: Emergency Provider Student in an Organized Health Care Education/Training Program; PCP Internal Medicine; Visit Provider Internal Medicine Cardiovascular Disease | DX: R07.9 Chest pain, unspecified (principal) | CPT/HCPCS: 93010 ==

== ENCOUNTER 2023-07-30 11:19 | Outpatient (REF) | payer OTHER, SELFPAY ==
[2023-07-30 12:06] LABS: MANUAL DIFF FLAG NO
[2023-07-30 12:26] LABS: Basophils Percent Auto 0.4 % (0-2); Eosinophils Percent Auto 0.4 % (0-4); Hematocrit 34.7 % (37.0-47.0); Hemoglobin 10.9 g/dl (12.0-16.0); Imm Gran Abs Auto 0.01 X10*3/uL (0.00-0.03); Imm Gran Pct Auto 0.2 % (0.0-0.4); Lymphocytes Absolute Auto 1.1 X10*3/uL (1.2-4.9); Lymphocytes Percent Auto 20.8 % (20-40); Mean Corpuscular HGB Conc 31.4 g/dl (31.0-35.0); Mean Corpuscular Hemoglobin 24.1 pg (27.0-33.0); Mean Corpuscular Volume 76.8 fL (80.0-98.0); Mean Platelet Volume 11.2 fL (9.4-12.3); Monocytes Absolute Auto 0.3 X10*3/uL (0.1-1.2); Monocytes Percent Auto 5.2 % (2-11); Neutrophils Absolute Auto 3.7 x10*3/uL (2.0-8.3); Platelet Count 200 X10*3/uL (160-400); Red Blood Count 4.52 X10*6/uL (4.20-5.50)
[2023-07-30 13:03] LABS: Alanine Aminotransferase 13 U/L (0-31); Alkaline Phosphatase 98 U/L (39-117); Anion Gap 11 (12-20); Aspartate Amino Transferase 14 U/L (5-31); Bilirubin Total 0.4 mg/dL (0.0-1.0); Blood Urea Nitrogen 8 mg/dL (9-16); Calcium 10.5 mg/dL (8.4-10.2); Carbon Dioxide 25 mmol/L (22-29); Chloride 107 mmol/L (96-108); Estimated Glomerular Filt Rate > 60; Glucose Random 107 mg/dL (60-115); Potassium 3.8 mmol/L (3.3-5.1); Sodium 139 mmol/L (135-145)
[2023-07-30 13:19] LABS: Ferritin 6 ng/mL (10-122)
== END 2023-07-30 11:20 | disposition home or self-care (01) ==
LOC: HO.LAB 11:19
PROVIDERS: PCP Internal Medicine; Visit Provider Internal Medicine
DX: D50.8 Other iron deficiency anemias (principal); M54.50 Low back pain, unspecified; N23 Unspecified renal colic
CPT/HCPCS: 36415; 80053; 82728; 85025

== ENCOUNTER 2024-02-20 11:06 | Emergency (ER) | payer OTHER, SELFPAY ==
[2024-02-20 11:20] VITALS: BP 122/73; PULSE 74; RESP 18; TEMP 37; O2SAT 100; BMI 30.3
--- NOTE | 2024-02-20 11:22 | ED_ITS ---
HPI - Skin/Abscess/Foreign Bdy General Chief complaint: Skin/Abscess/Foreign Body Stated complaint: itchy rash Time Seen by Provider: 02/20/24 11:29 Source: patient and RN notes reviewed Mode of arrival: ambulatory Limitations: no limitations History of Present Illness ED Provider: Delmis Fuentes PA-C HPI narrative: This is a [id number]-nox-female, with a hx of seizure disorder, who presents to the ER with complaints of itchy rash on right arm for the last several days. Reports that the rash only occurs when she scratches. She did switch detergents recently and is unsure if this is the cause of it. Reports that her daughter may have the rash as well but is unsure. No CP, SOB. No new sleeping arrangements. No other complaints or concerns at this time. MD complaint: rash Severity: mild Quality: pruritic Relieving factors: none Exacerbating factors: none Associated symptoms: itching Treatments prior to arrival: none Related Data Previous Rx's ?Medication ?Instructions ?Recorded cephalexin 500 mg tablet 500 mg PO QID 7 days #28 tabs 08/13/20 cetirizine 10 mg capsule 10 mg PO DAILY PRN allergy 08/13/20 symptoms #14 caps hydrocortisone 2.5 % topical cream 1 appl topical BID PRN itching #20 08/13/20 grams amoxicillin 875 mg-potassium 1 tab PO Q12H 10 days #20 tabs 11/16/20 clavulanate 125 mg tablet (Augmentin) doxycycline monohydrate 100 mg 100 mg PO BID 10 days #20 caps 11/16/20 capsule diphenhydramine HCl 25 mg capsule 25 - 50 mg (1 - 2 x 25 mg) PO TID 02/20/24 (Benadryl) PRN itching #14 caps hydrocortisone 2.5 % topical cream 1 appl topical QID PRN itching 2 02/20/24 weeks #20 grams Allergies Allergy/AdvReac Type Severity Reaction Status Date / Time No Known Allergies Allergy Verified 02/20/24 11:22 [No Known Allergies*] Review of Systems Review of Systems: Yes all other systems are reviewed and are negative Constitutional: Constitutional: Reports as per HPI [facility] Past Medical History Attestation statement: The following information was validated with the patient. Medical History Epilepsy Social History Social History Advance Directives: No Advance Directives Information Provided: No Physical Exam Vital Signs: Vital Signs: Last Vital Signs Temp 98.6 F 02/20/24 11:34 Pulse 74 02/20/24 11:34 Resp 18 02/20/24 11:34 BP 122/73 02/20/24 11:34 Pulse Ox 100 02/20/24 11:34 O2 Del Method Room Air 02/20/24 11:34 BMI result Body Mass Index 30.3 Const: General: cooperative, comfortable and no acute distress Orientation /consciousness: patient oriented x3 Limitations: no limitations HEENT: Head: Yes normal to inspection, Yes normocephalic and Yes atraumatic Ears: hearing grossly normal bilaterally General nose exam: Normal external nose present Face and sinus: Yes normal facial exam Mouth: Normal oral and palatal mucosa present, oropharynx normal and moist mucous membranes Throat: Yes posterior oropharynx normal Eyes: General: appearance normal, both eyes and all related structures Eyelids: Yes eyelids normal Conjunctivae: conjunctivae normal Sclerae: sclerae normal Pupils: Equal, round and reactive pupils present EOM: EOMs intact bilaterally Neck: Neck: Yes normal visual inspection, Yes full ROM and Yes no lymphadenopathy Lymphatic: no lymphadenopathy noted Chest: Chest palpation & inspection: normal inspection of the chest Resp: Effort & Inspection: normal respiratory effort and able to speak in complete sentences Cardio: Rate: regular rate Rhythm: regular rhythm Heart sounds: S1 normal heart sound present and S2 normal heart sound present GI: Inspection: Yes normal to inspection Skin: Other: Right forearm, flexor surfae there are three papules noted, with no surrounding erythema, warmth or excoriations. No streaking, No other visualized rash noted throughout. Neuro: General: patient oriented x3 and moves all extremities Cranial nerves: Yes Equal, round and reactive pupils present Extrem: General: Yes normal to inspection Right upper extremity: normal to inspection Left upper extremity: normal to inspection Right lower extremity: normal to inspection Left lower extremity: normal to inspection Medical Decision Making Medical Decision Making MDM Narrative: This is a [id number]-female who presents to the ER with complaints of itchy rash for the last several days. On arrival, VSS, she is comfortable, speaking in full sentences. She has 3 papules noted to right forearm no other rash throughout. Will treat with hydrocortisone cream. Discussed tx with prednisone, however rash is not in any other location, will defer this type of treatment. Discussed strict return precautions. Not consistent with scabies or beg bug like rash. Differential Diagnosis Differential Diagnoses: The differential diagnosis associated with the presentation includes contact dermatitis, folliculitis, insect bites, cellulitis Discharge Plan Discharge Clinical Impression: Contact dermatitis Patient Disposition: Home, Self-Care Instructions: Contact Dermatitis (ED) Additional Instructions: You were seen in the ER due to a rash. It is unclear what is causing this rash, but we will treat the symptoms. Because you only have a small area of rash we will treat with topical cortisone cream. Please use as prescribed. You may also take benadryl at home to treat the itchiness. This may cause drowsiness, please do not drink alcohol or drive while taking this medication./ If any new or worsening symptoms occur including but not limited to shortness of breath or chest pain, please return. If the rash spreads or worsens, you may want to be re-evaluated. Prescriptions: New hydrocortisone 2.5 % cream 1 appl topical QID PRN (Reason: itching) 14 Days Qty: 20 0RF diphenhydramine HCl [Benadryl] 25 mg capsule 25 - 50 mg PO TID PRN (Reason: itching) Qty: 14 0RF No Action hydrocortisone 2.5 % cream 1 appl topical BID PRN (Reason: itching) Qty: 20 0RF cephalexin 500 mg tablet 500 mg PO QID 7 Days Qty: 28 0RF cetirizine 10 mg capsule 10 mg PO DAILY PRN (Reason: allergy symptoms) Qty: 14 0RF amoxicillin-pot clavulanate [Augmentin] 875-125 mg tablet 1 tab PO Q12H 10 Days Qty: 20 0RF doxycycline monohydrate 100 mg capsule 100 mg PO BID 10 Days Qty: 20 0RF Interventions: ED Discharge Assessment Last Done: 02/20/24 11:34 Discharge Date/Time: 02/20/24 11:39 Print Language: Bengali
[2024-02-20 11:34] VITALS: BP 122/73; PULSE 74; RESP 18; TEMP 37; O2SAT 100
== END 2024-02-20 11:39 | disposition home or self-care (01) ==
PROVIDERS: Emergency Provider Emergency Medicine; PCP Internal Medicine
DX: L25.9 Unspecified contact dermatitis, unspecified cause (principal); R21 Rash and other nonspecific skin eruption
CPT/HCPCS: 99282; 99283

== ENCOUNTER 2024-03-03 14:49 | Outpatient (REF) | payer OTHER, SELFPAY ==
[2024-03-03 15:15] LABS: MANUAL DIFF FLAG NO
[2024-03-03 15:49] LABS: Basophils Percent Auto 0.2 % (0-2); Eosinophils Percent Auto 0.3 % (0-4); Hematocrit 39.5 % (37.0-47.0); Hemoglobin 12.7 g/dl (12.0-16.0); Imm Gran Abs Auto 0.01 X10*3/uL (0.00-0.03); Imm Gran Pct Auto 0.2 % (0.0-0.4); Lymphocytes Absolute Auto 1.4 X10*3/uL (1.2-4.9); Lymphocytes Percent Auto 23.6 % (20-40); Mean Corpuscular HGB Conc 32.2 g/dl (31.0-35.0); Mean Corpuscular Hemoglobin 26.6 pg (27.0-33.0); Mean Corpuscular Volume 82.8 fL (80.0-98.0); Mean Platelet Volume 10.6 fL (9.4-12.3); Monocytes Absolute Auto 0.4 X10*3/uL (0.1-1.2); Monocytes Percent Auto 7.3 % (2-11); Neutrophils Absolute Auto 3.9 x10*3/uL (2.0-8.3); Neutrophils Percent Auto 68.4 % (45-73); Platelet Count 194 X10*3/uL (160-400); Red Blood Count 4.77 X10*6/uL (4.20-5.50); Red Cell Distribution Width 14.8 % (11.0-16.0); White Blood Count 5.8 X10*3/uL (4.8-10.8)
[2024-03-03 16:22] LABS: Phosphorus 2.3 mg/dL (2.7-4.5)
[2024-03-03 16:43] LABS: Parathyroid Hormone Intact 267.6 pg/mL (8.7-77.1); Vitamin D 25-OH Total 13.7 ng/mL (>30)
== END 2024-03-03 14:50 | disposition home or self-care (01) ==
LOC: HO.LAB 14:49
PROVIDERS: PCP Internal Medicine; Visit Provider Internal Medicine
DX: D50.8 Other iron deficiency anemias (principal); E83.52 Hypercalcemia
CPT/HCPCS: 36415; 82306; 83970; 84100; 85025

== ENCOUNTER 2024-05-06 15:38 | Emergency (ER) | payer OTHER, SELFPAY ==
[2024-05-06 16:34] VITALS: BP 134/94; PULSE 80; RESP 20; TEMP 36.3; O2SAT 100; BMI 33.6
--- NOTE | 2024-05-06 16:34 | ED_ITS ---
HPI - Skin/Abscess/Foreign Bdy General Chief complaint: Skin/Abscess/Foreign Body Stated complaint: rash Time Seen by Provider: 05/06/24 16:44 Source: patient, RN notes reviewed and old records reviewed Mode of arrival: ambulatory History of Present Illness ED Provider: June Henderson PA-C HPI narrative: 38-year-old female with a past medical history seizure disorder presenting to the ED complaining of diffuse pruritic rash x months. Admits has been seen by PCP and in our ED for similar symptoms, been using topical creams/ lotions and Benadryl without relief. States family at home experiencing similar symptoms. Denies known new exposures, soaps, lotion, detergent from medication, shortness of breath, throat closing sensation Related Data Previous Rx's ?Medication ?Instructions ?Recorded cephalexin 500 mg tablet 500 mg PO QID 7 days #28 tabs 08/13/20 cetirizine 10 mg capsule 10 mg PO DAILY PRN allergy 08/13/20 symptoms #14 caps hydrocortisone 2.5 % topical cream 1 appl topical BID PRN itching #20 08/13/20 grams amoxicillin 875 mg-potassium 1 tab PO Q12H 10 days #20 tabs 11/16/20 clavulanate 125 mg tablet (Augmentin) doxycycline monohydrate 100 mg 100 mg PO BID 10 days #20 caps 11/16/20 capsule diphenhydramine HCl 25 mg capsule 25 - 50 mg (1 - 2 x 25 mg) PO TID 02/20/24 (Benadryl) PRN itching #14 caps hydrocortisone 2.5 % topical cream 1 appl topical QID PRN itching 2 02/20/24 weeks #20 grams hydrocortisone 1 % lotion 1 appl topical BID PRN rash #120 mL 05/06/24 (Anti-Itch (hydrocortisone)) permethrin 5 % topical cream 1 appl topical Q14D 2 doses #60 05/06/24 grams prednisone 20 mg tablet 40 mg (2 x 20 mg) PO DAILY 5 days 05/06/24 #10 tabs Allergies Allergy/AdvReac Type Severity Reaction Status Date / Time No Known Allergies Allergy Verified 05/06/24 16:37 [No Known Allergies*] Review of Systems Review of Systems: Yes all other systems are reviewed and are negative Constitutional: Constitutional: Reports as per HPI [facility] Past Medical History Attestation statement: The following information was validated with the patient. Source: old records reviewed Medical History Epilepsy Social History Social History Advance Directives: No Advance Directives Information Provided: No Do you have a plan to hurt others: No Plan Physical Exam Vital Signs: Vital Signs: Last Vital Signs Temp 97.3 F 05/06/24 16:47 Pulse 80 05/06/24 16:47 Resp 20 05/06/24 16:47 BP 134/94 H 05/06/24 16:47 Pulse Ox 100 05/06/24 16:47 O2 Del Method Room Air 05/06/24 16:47 BMI result Body Mass Index 33.6 Const: General: cooperative, healthy appearing and no acute distress Orientation/consciousness: patient oriented x3 Limitations: no limitations HEENT: Head: Yes normal to inspection and Yes atraumatic Ears: hearing grossly normal bilaterally General nose exam: Normal external nose present Face and sinus: Yes normal facial exam Eyes: General: appearance normal, both eyes and all related structures EOM: EOMs intact bilaterally Neck: Neck: Yes normal visual inspection and Yes no meningeal signs Resp: Effort & Inspection: normal respiratory effort and no respiratory distress Cardio: Rate: regular rate Skin: Other: + small diffuse erythematous papules not ed to UE, back, chest, + linear excoriation noted to anterior chest wall No mucous membrane involvement. No palm/sole involvement. no sloughing Wounds: no wounds Neuro: General: patient oriented x3, tone normal and no meningeal signs Cranial nerves: Yes CN's II-XII intact bilaterally Gait exam (Neuro): Normal gait present Extrem: General: Yes normal to inspection Medical Decision Making Medical Decision Making MDM Narrative: 38-year-old female with a past medical history seizure disorder presenting to the ED complaining of diffuse pruritic rash x months. on exam vital signs stable, NAD, nontoxic appearing, physical exam as noted above. Concern for dermatitis vs ? scabies. No evidence of SJS/TENS. no evidence of anaphylaxis. Lower suspicion for allergic reaction. Talking in complete sentences. Plan: Topical hydrocortisone cream, p.o. prednisone, permethrin, dermatology follow-up Please refer to course for remaining clinical decision making, interpretation of labs/imaging results, and discussions with consultants and/or family members. Results discussed with patient including worrisome signs and symptoms and strict return precautions, and when to return to the emergency department. They ve rbalized understanding and feel safe for discharge at this time. Differential Diagnosis Differential Diagnoses: The differential diagnosis associated with the presentation includes As above External Record Review External record reviewed: Inpatient record, Office record, Outpatient record, Prior outpatient labs, Prior outpatient radiology, Primary care record and Outside ED record Tests considered The following testing was considered but not selected: As above Prescription Management I considered prescription management with: Pain Medication, Antiviral and Antibiotic Chronic Conditions Patient?s care impacted by: Other Social Determinants Patient?s care significantly limited by Social Determinants of Health including: Other Social Determinant of Health Discharge Plan Discharge Clinical Impression: Pruritic rash Patient Disposition: Home, Self-Care Instructions: Acute Rash (ED) Additional Instructions: please use hydrocortisone lotion to rash twice daily as needed Use permethrin cream as prescribed You may have scabies, wash all of your linens in hot water, put linens and pillows in trash bags. Follow CDC guidelines for scabies prednisone as a steroid, please take as prescribed You need to follow up with Dermatology If her symptoms persist or worsen, you develop any shortness of breath, throat closing sensation or difficulty breathing return to the ED Prescriptions: New prednisone 20 mg tablet 40 mg PO DAILY 5 Days Qty: 10 0RF permethrin 5 % cream 1 appl topical Q14D Qty: 60 0RF Rx Instructions: apply second treatment 14 days after first treatment if live lice remain hydrocortisone [Anti-Itch (HC)] 1 % lotion 1 appl topical BID PRN (Reason: rash) Qty: 120 0RF No Action hydrocortisone 2.5 % cream 1 appl topical BID PRN (Reason: itching) Qty: 20 0RF cephalexin 500 mg tablet 500 mg PO QID 7 Days Qty: 28 0RF cetirizine 10 mg capsule 10 mg PO DAILY PRN (Reason: allergy symptoms) Qty: 14 0RF amoxicillin-pot clavulanate [Augmentin] 875-125 mg tablet 1 tab PO Q12H 10 Days Qty: 20 0RF doxycycline monohydrate 100 mg capsule 100 mg PO BID 10 Days Qty: 20 0RF hydrocortisone 2.5 % cream 1 appl topical QID PRN (Reason: itching) 14 Days Qty: 20 0RF diphenhydramine HCl [Benadryl] 25 mg capsule 25 - 50 mg PO TID PRN (Reason: itching) Qty: 14 0RF Referrals: Anna Mckeon PA [Physician [employer]ical [employer] Administrative [employer]] - Khurram Lombardi MD [Physician] - Sterling Parmar MD [Physician] - Swapna Quezada PA-C [Physician [employer]erical [employer] Administrative Workers] - Brandi Villareal PA [Physician Clerical And Administrative Workers] - Interventions: ED Discharge Assessment Last Done: 05/06/24 16:47 Discharge Date/Time: 05/06/24 16:57 Print Language: Lithuanian
[2024-05-06 16:47] VITALS: BP 134/94; PULSE 80; RESP 20; TEMP 36.3; O2SAT 100
--- OUTSIDE RECORDS SUMMARY | 2024-05-06 18:09 | XMS_ITS | Clinical Summary ---
Author Organization [facility] Address [address] [place] [address] Care Team Providers Care Radiotelegrapher Name Role Phone Marion Hinojosa MD Primary Care Provider [phone] Allergies No known active allergies Medications Medication Sig Dispensed Refills Start Date End Date Status OXcarbazepine (TRILEPTAL) 150 MG tablet Take 1 tablet (150 mg total) by mouth 2 (two) times a day. 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 Family History Medical History Relation Name Comments Cancer Maternal Grandmother colon c a Relation Name Status Comments Maternal Grandmother Social History Tobacco Use Types Packs/Day Years Used Date Smoking Tobacco: Never Alcohol Use Standard Drinks/Week Comments No 0 (1 standard drink = 0.6 oz pur e alcohol) Sex and Gender Information Value Date Recorded Sex Assigned at Not on file Gender Identity Not on file Sexual Orientation Not on file Job Start Date Occupation Industry Not on file Not on file Not on file Last Filed Vital Signs Vital Sign Reading Time Taken Comments Blood Pressure 92/60 12/25/2022 11:43 AM EDT Pulse 81 12/25/2022 11:43 AM EDT Temperature 36.3 ??C (97.4 ??F) 12/25/2022 11:43 AM E DT Respiratory Rate - - Oxygen Saturation 100% 06/09/2022 11:02 AM EDT Inhaled Oxygen Concentration - - Weight 84.9 kg (187 lb 3.2 oz) 06/09/2022 11:02 AM EDT Height 165.1 cm (5' 5 ) 12/25/2022 11:43 AM EDT Body Mass Index 31.15 06/09/2022 11:02 AM EDT Plan of Treatment Health Maintenance Due Date Last Done Comments Hepatitis B Vaccines (1 of 3 - 3-dose series) 1984 Hepatitis C Screening 1984 COVID-19 Vaccine (#1) 1989 Pneumococcal Vaccine (1 of 2 - PCV) 1990 Depression Screening 1996 Preventative Health Evaluation 2002 Cervical Cancer Screening (P ap Smear) 2005 Influenza Vaccine (#1) 2023 DTap / Tdap / Td (2 - Td or Tdap) 12/21/2024 015 RSV Ped < 20 months Aged Out No longe r eligible based on patient's age to complete this topic Care Teams Radiotelegrapher Relationship Specialty Start Date End Date Marion Hinojosa MD [address] [address] PCP - General Internal Medicine 01/19/17
--- OUTSIDE RECORDS SUMMARY | 2024-05-06 18:09 | XMS_ITS | Clinical Summary ---
Author Organization [facility] Address [address] [place] [address] Phone Care Team Providers Care Print Line Operator Name Role Phone Marion Hinojosa MD Primary Care Provider [phone] Surgical History Surgery Date Site/Laterality Comments CRANIOTOMY PROCEDURE:CRANIOTOMY Medical History Medical History Date Comments Brain cancer (CMS/HCC) DX:Brain cancer (HCC) Family History Medical History Relation Name Comments Cancer Maternal Grandmother colon c a Relation Name Status Comments Maternal Grandmother Social History Tobacco Use Types Packs/Day Years Used Date Smoking Tobacco: Never Alcohol Use Standard Drinks/Week Comments No 0 (1 standard drink = 0.6 oz pur e alcohol) Comments Unknown Sex and Gender Information Value Date Recorded Sex Assigned at Not on file Legal Sex Female 5:37 AM EST Gender Identity Not on file Sexual Orientation Not on file Obstetrics History Last Filed Vital Signs Vital Sign Reading Time Taken Comments Blood Pressure 92/60 12/25/2022 11:43 AM EDT Sitting Left arm Pulse 81 12/25/2022 11:43 AM EDT Temperature - - Respiratory Rate - - Oxygen Saturation - - Inhaled Oxygen Concentration - - Weight 84.9 kg (187 lb 3.2 oz) 06/09/2022 11:02 AM EDT Height 165.1 cm (5' 5 ) 12/25/2022 11:4 3 AM EDT Body Mass Index 31.15 06/09/2022 11:02 AM EDT Plan of Treatment Upcoming Encounters Date Type Department Care Team (Late st Contact Info) Description 05/23/2024 11:15 AM EDT Office Visit [facility] Hematology Oncology [address] [place] [address] Renaldo Hdz MD [address] [place] [phone] Health Maintenance Due Date Last Done Comments COVID-19 Vaccine (#1) 1989 DTaP,Tdap,and Td Vaccines (1 - Tdap) 12/28/2003 Hepatitis B Vaccines (1 of 3 - 19+ 3-dose series) 12/28/2003 Pneumococcal Vaccine: Pediat rics (0 to 5 Years) and At-Risk Patients (6 to 64 Years) (1 of 2 - PCV) 12/28/2003 Cervical Cancer Screening: P ap Smear 2005 Depression Screening 02/14/2022 Hepatitis C Screening 02/14/2022 Social Influencers of Health Screening 02/14/2022 Influenza Vaccine (#1) 2023 HIV Screening Completed 11/02/2003 HIB Vaccines Aged Out No longer eligi ble based on patient's age to complete this topic HPV Vaccines Aged Out No longer eligi ble based on patient's age to complete this topic Hepatitis A Vaccines Aged Out No long er eligible based on patient's age to complete this topic IPV Vaccines Aged Out No longer eligi ble based on patient's age to complete this topic MMR Vaccines Aged Out No longer eligi ble based on patient's age to complete this topic Meningococcal ACWY Vaccine Aged Out N o longer eligible based on patient's age to complete this topic Meningococcal B Vacine Aged Out No lo nger eligible based on patient's age to complete this topic RSV Immunization Patients Un willard 20 months Aged Out No longer eligible b ased on patient's age to complete this topic Varicella Vaccines Aged Out No longer eligible based on patient's age to complete this topic Procedures Procedure Name Priority Date/Time Associated Diagnosis Comments HIV SCREENING Routine 11/02/2003 from Last 3 Months or Most Recently Relevant to Health Maintenance Results * HIV Screening (11/02/2003) HIV Screening Abstracted us Historical Provider HEALTH MAINTENANCE Final Result from Last 3 Months or Most Recently Relevant to Health Maintenance Insurance [facility] [employer] [place] [id number] Care Teams Print Line Operator Relationship Specialty Start Date End Date Marion Hinojosa MD [address] [place] [address] Dr [place] [id number] PCP - General Internal Medicine 01/19/17
== END 2024-05-06 16:57 | disposition home or self-care (01) ==
LOC: HO.ED 16:48
PROVIDERS: Emergency Provider Emergency Medicine; PCP Internal Medicine
DX: L29.9 Pruritus, unspecified (principal)
CPT/HCPCS: 99282; 99283

== ENCOUNTER → 2024-05-16 11:16 | Outpatient (REF) | payer OTHER, SELFPAY ==
--- NOTE | ~2024-05-16 | NM_ITS ---
EXAMINATION: Nuclear medicine parathyroid SPECT with CT CLINICAL INDICATION: Hyperparathyroidism. COMPARISON: None. TECHNIQUE: Following intravenous administration of 30 mCi of Cardiolite in right hand, imaging over anterior neck was obtained at 20 minutes and 2 hours in multiple projections. Nuclear medicine SPECT and CT axial images were obtained at 2 hours. Color fusion was obtained on separate workstation and available for interpretation. FINDINGS: At 20 minutes imaging there is symmetrical activity seen in both thyroid lobes with a focal increased activity in the lower pole of right thyroid lobe. At 2 hours there is complete washout of thyroid activity. There is a focal area of increased activity in the inferior pole right thyroid gland. This findings is confirmed by CT SPECT study and color perfusion imaging where there is a focal activity seen in the lower pole right thyroid gland. There is normal symmetrical activity seen in bilateral parotid and submandibular glands. No abnormal activity seen in the upper chest or lateral axilla. NM/NM parathyroid SPECT w CT IMPRESSION: Findings most suspicious of right thyroid lobe inferior pole parathyroid adenoma. Electronically signed by: Yusuf Fofana MD 05/17/2024 07:10 AM EDT
--- OUTSIDE RECORDS SUMMARY | 2024-05-16 12:53 | XMS_ITS | Clinical Summary ---
Author Organization [facility] Address [address] [place] [address] Care Team Providers Care Cable Systems Installer Name Role Phone Marion Hinojosa MD Primary Care Provider [phone] Allergies No known active allergies Medications Medication [...] age to complete this topic Care Teams Cable Systems Installer Relationship Specialty Start Date End Date Marion Hinojosa MD [address] [address] PCP - General Internal Medicine 01/19/17
== END ==
LOC: HO.NUCMED 11:16
PROVIDERS: PCP Internal Medicine; Visit Provider Internal Medicine
DX: E21.0 Primary hyperparathyroidism (principal)
CPT/HCPCS: 78072; A9500

== ENCOUNTER → 2024-05-16 11:46 | Outpatient (BNV) | payer OTHER, SELFPAY | PROVIDERS: PCP Internal Medicine; Visit Provider Radiology Diagnostic Radiology | DX: E21.2 Other hyperparathyroidism (principal) | CPT/HCPCS: 78072 ==

== ENCOUNTER 2024-05-24 15:25 | Outpatient (REF) | payer OTHER, SELFPAY ==
[2024-05-24 17:15] LABS: Alanine Aminotransferase 21 U/L (0-31); Alkaline Phosphatase 124 U/L (39-117); Anion Gap 11 (12-20); Aspartate Amino Transferase 15 U/L (5-31); Bilirubin Total 0.3 mg/dL (0.0-1.0); Blood Urea Nitrogen 9 mg/dL (9-16); Calcium 10.5 mg/dL (8.4-10.2); Carbon Dioxide 26 mmol/L (22-29); Chloride 106 mmol/L (96-108); Estimated Glomerular Filt Rate > 60; Glucose Random 90 mg/dL (60-115); Potassium 3.8 mmol/L (3.3-5.1); Sodium 139 mmol/L (135-145)
== END 2024-05-24 15:26 | disposition home or self-care (01) ==
LOC: HO.LAB 15:25
PROVIDERS: PCP Internal Medicine; Visit Provider Internal Medicine
DX: D50.9 Iron deficiency anemia, unspecified (principal); E21.0 Primary hyperparathyroidism; E55.9 Vitamin D deficiency, unspecified; G40.109 Localization-related (focal) (partial) symptomatic epilepsy and epileptic syndromes with simple partial seizures, not intractable, without status epilepticus; L85.3 Xerosis cutis
CPT/HCPCS: 36415; 80053; 83970

== ENCOUNTER 2024-10-09 15:20 | Emergency (ER) | payer OTHER, SELFPAY ==
[2024-10-09 15:33] VITALS: BP 125/74; PULSE 100; RESP 18; TEMP 36.6; O2SAT 100; BMI 33.3
--- NOTE | 2024-10-09 15:36 | ED_ITS ---
HPI - Skin/Abscess/Foreign Bdy General Chief complaint: Extremity Injury, Lower Stated complaint: left 3rd toe injury Time Seen by Provider: 10/09/24 15:35 Source: patient Mode of arrival: ambulatory Limitations: no limitations History of Present Illness ED Provider: Renee Cordero NP HPI narrative: Patient is a 38-year-old female who presents emergency department for evaluation. She reports prior to arrival she dropped a cup onto her left foot resulting in an abrasion to the left 3rd toe. No active bleeding. We will see of anticoagulants. Ambulatory with steady gait. States she was not certain whether she needs stitches which brought her to the emergency department today. She is not a diabetic. Related Data Previous Rx's ?Medication ?Instructions ?Recorded cephalexin 500 mg tablet 500 mg PO QID 7 days #28 tab s 08/13/20 cetirizine 10 mg capsule 10 mg PO DAILY PRN allergy 0 08/13/20 symptoms #14 caps hydrocortisone 2.5 % topical cream 1 appl topical BID PRN itching #20 08/13/20 grams amoxicillin 875 mg-potassium 1 tab PO Q12H 10 days #20 tabs 11/16/20 clavulanate 125 mg tablet (Augmentin) doxycycline monohydrate 100 mg 100 mg PO BID 10 days # 20 caps 11/16/20 capsule diphenhydramine HCl 25 mg capsule 25 - 50 mg (1 - 2 x 25 mg) PO TID 02/20/24 (Benadryl) PRN itching #14 caps hydrocortisone 2.5 % topical cream 1 appl topical QID PRN itching 2 02/20/24 weeks #20 grams hydrocortisone 1 % lotion 1 appl topical BID PRN rash #120 mL 05/06/24 (Anti-Itch (hydrocortisone)) permethrin 5 % topical cream 1 appl topical Q14D 2 dos es #60 05/06/24 grams prednisone 20 mg tablet 40 mg (2 x 20 mg) PO DAILY 5 days 05/06/24 #10 tabs Allergies Allergy/AdvReac Type Severity Reaction Status Date / Time No Known Allergies (No Known Allergy Verified 10/09/24 15:34 Allergies*) Review of Systems Review of Systems: Yes all other systems are reviewed and are negative PMFSH Past Medical History Attestation statement: The following information was validated with the patient. Source: old records reviewed Medical History Epilepsy Social History Social History Do you have a plan to hurt others: No Plan Physical Exam Exam: Exam: Appearance: Alert.?Oriented to person, place and time. No acute distress.?Normal affect. CVS: Heart sounds normal. Normal heart rate and rhythm.? Pulses normal.?? Respiratory: No respiratory distress.? Lung sounds clear to auscultation bilaterally??? Skin: Skin warm and dry.? Normal skin color.? Extremities: No lower extremity edema.? Medial aspect of left 3rd toe with superficial abrasion, no active bleeding. No bony tenderness. no deformity to the toe Neuro: Moves all extremities spontaneously. Sensation intact bilaterally. Ambulates with normal steady gait. Vital Signs: Vital Signs: Last Vital Signs Temp 98 F 10/09/24 15:33 Pulse 100 10/09/24 15:33 Resp 18 10/09/24 15:33 BP 125/74 10/09/24 15:33 Pulse Ox 100 10/09/24 15:33 O2 Del Method Room Air 10/09/24 15:33 BMI result Body Mass Index 33.3 Medications Administered Discontinued Medications Generic Name Dose Route Start Last Admin Trade Name Freq PRN Reason Stop Dose Admin Bacitracin 1 appl 10/09/24 15:36 10/09/24 15:44 Bacitracin Oint 0.9 Gm Packet TOPICAL 10/09/24 15:37 1 appl ONCE ONE Administration Protocol Medical Decision Making Medical Decision Making MDM Narrative: Patient is a 38-year-old female presents emergency department for evaluation of a left 3rd toe injury as per HPI. Dropped an aluminum cup onto the toe. There is a superficial abrasion that was cleansed with normal saline, and topical bacitracin was applied with a bandage. No indication for suture repair. Tetanus vaccination up-to-date. No bony tenderness, able to move the digit, no deformity, low suspicion for acute fracture. Would defer XR imaging at this time. Reviewed conservative wound treatment, outpatient follow-up with primary care doctor as needed. All questions answered. Stable for discharge Differential Diagnosis Differential Diagnoses: The differential diagnosis associated with the presentation includes (See narrative above) External Record Review External record reviewed: Outpatient record Tests considered The following testing was considered but not selected: XR deferred Prescription Management I considered prescription management with: Antibiotic (Topical) Discharge Plan Discharge Clinical Impression: Abrasion foot/toe Patient Disposition: Home, Self-Care Instructions: Abrasion (ED) Additional Instructions: Clean twice daily with warm water and mild sentence soap. Apply topical antibiotic ointment. Monitor for signs of infection including redness, swelling, increased pain, pus- like discharge, inability to move the toe, fevers, chills, streaking redness moving up the foot. Follow up with primary care provider as needed Prescriptions: No Action hydrocortisone 2.5 % cream 1 appl topical BID PRN (Reason: itching) Qty: 20 0RF cephalexin 500 mg tablet 500 mg PO QID 7 Days Qty: 28 0RF cetirizine 10 mg capsule 10 mg PO DAILY PRN (Reason: allergy symptoms) Qty: 14 0RF amoxicillin-pot clavulanate [Augmentin] 875-125 mg tablet 1 tab PO Q12H 10 Days Qty: 20 0RF doxycycline monohydrate 100 mg capsule 100 mg PO BID 10 Days Qty: 20 0RF prednisone 20 mg tablet 40 mg PO DAILY 5 Days Qty: 10 0RF permethrin 5 % cream 1 appl topical Q14D Qty: 60 0RF Rx Instructions: apply second treatment 14 days after first treatment if live lice remain hydrocortisone [Anti-Itch (HC)] 1 % lotion 1 appl topical BID PRN (Reason: rash) Qty: 120 0RF hydrocortisone 2.5 % cream 1 appl topical QID PRN (Reason: itching) 14 Days Qty: 20 0RF diphenhydramine HCl [Benadryl] 25 mg capsule 25 - 50 mg PO TID PRN (Reason: itching) Qty: 14 0RF Referrals: Physician,Unknown J [Primary Care Provider, Medical] Print Language: Greenlandic
--- NOTE | 2024-10-09 15:50 | PC.NURSE ---
discharged by provider from .
--- OUTSIDE RECORDS SUMMARY | 2024-10-09 15:50 | XMS_ITS | Clinical Summary ---
Author Organization [facility] Address [address] [place] [address] Care Team Providers Care Director Of Cath Lab Name Role Phone Marion Hinojosa MD Primary Care Provider [phone] Allergies No known active allergies Medications Medication [...] 81 12/25/2022 11:43 AM EDT Temperature 36.3 C (97.4 F) 12/25/2022 11:43 AM EDT Respiratory Rate - - Oxygen Saturation 100% [...] (P ap Smear) 2005 Influenza Vaccine (#1) 2024 DTap / Tdap / Td (2 - Td or Tdap) 12/21/2024 015 RSV Ped < 20 months Aged Out No longe r eligible based on patient's age to complete this topic Care Teams Director Of Cath Lab Relationship Specialty Start Date End Date Marion Hinojosa MD [address] [phone] PCP - General Internal Medicine 01/19/17
--- OUTSIDE RECORDS SUMMARY | 2024-10-09 15:50 | XMS_ITS | Clinical Summary ---
Author Organization [facility] Address [address] [place] [address] Phone Care Team Providers Care Shoe Lacer Name Role Phone Marion Hinojosa MD Primary Care Provider Allergies No known active allergies Medications OXcarbazepine (TRILEPTAL) 300 mg tablet Take 1 tablet (300 mg total) by mouth 2 (two) times a day. for 90 days 04/22/2024 Active Active Problems Problem Noted Date Diagnosed Date Anaplastic astrocytoma ([facility] V24, [facility] V28 ) 05/23/2024 Encounters Date Type Department Care Team Description 10/05/2024 3:15 PM EDT - 10/05/2024 11:59 PM EDT Hospital Encounter [facility] MRI [address] [place] [address] Anaplastic astrocytoma ([facility] V24, [facility] V28) Discharge Disposition: Home or Self Care 09/08/2024 Telephone [facility] Hematology Oncology [address] [place] [address] Tiny Godoy [place] MRI Order 08/05/2024 Lab Requisition [facility] Lab [address] [facility] [place] [address] Marion Hinojosa MD Encounter for screening for malignant neoplasm of cervix from Last 3 Months Surgical History Surgery Date Site/Laterality Comments CRANIOTOMY PROCEDURE:CRANIOTOMY Medical History Medical History Date Comments Brain cancer ([facility] V24, [facility] V28) DX:Brain cancer (HCC) Family History Medical History Relation Name Comments Cancer Maternal Grandmother colon c a Relation Name Status Comments Maternal Grandmother Social History Tobacco Use Types Packs/Day Years Used Date Smoking Tobacco: Never Tobacco Cessation:Counseling Given: Not Answered Alcohol Use Standard Drinks/Week Comments No 0 (1 standard drink = 0.6 oz pur e alcohol) Comments Unknown Sex and Gender Information Value Date Recorded Sex Assigned at Not on file Legal Sex Female 5:37 AM EST Gender Identity Not on file Sexual Orientation Not on file Obstetrics History Last Filed Vital Signs Vital Sign Reading Time Taken Comments Blood Pressure 98/70 06/16/2024 1:30 PM EDT C Pulse 74 06/16/2024 1:30 PM EDT Temperature 36.4 C (97.5 F) 06/16/2024 1:30 PM EDT Respiratory Rate - - Oxygen Saturation 98% 06/16/2024 1:30 PM EDT Inhaled Oxygen Concentration - - Weight 90 kg (198 lb 6.4 oz) 06/16/2024 1:30 PM EDT Height 165.1 cm (5' 5 ) 06/16/2024 1:30 PM EDT Body Mass Index 33.02 06/16/2024 1:30 PM EDT Plan of Treatment Upcoming Encounters Date Type Department Care Team (Late st Contact Info) Description 11/24/2024 11:00 AM EDT Office Visit [facility] Hematology Oncology [address] [place] [address] Renaldo Hdz MD [address] [place] [address] Health Maintenance Due Date Last Done Comments COVID-19 Vaccine (#1) 1989 Hepatitis B Vaccines (1 of 3 - 19+ 3-dose series) 12/28/2003 Pneumococcal Vaccine: Pediatrics (0 to 5 Years) and At-Risk Patients (6 to 49 Years) (1 of 2 - PCV) 12/28/2003 Hepatitis C Screening 02/14/2022 Social Influencers of Health Screening 02/14/2022 Depression Screening 03/09/2024 Influenza Vaccine (#1) 2024 5, 02/03/2011 Cervical Cancer Screening: P ap Smear 08/03/2027 08/02/2024 DTaP,Tdap,and Td Vaccines (4 - Td or Tdap) 11/21/2030 11/21/2020, 12/21/2014, 08/10/2012 HIV Screening Completed 11/02/2003 HIB Vaccines Aged [...] age to complete this topic Meningococcal B Vaccine Aged Out No l onger eligible based on patient's age to complete this topic RSV Immunization Patients Under 20 months Aged Out No longer eligible b ased on patient's age to complete this topic Varicella Vaccines Aged Out No longer eligible based on patient's age to complete this topic Procedures Procedure Name Priority Date/Time Associated Diagnosis Comments MR BRAIN WO AND W CONTRAST Routine 10/05/2024 5:00 PM EDT Anaplastic astrocytoma (CMS/HCC V24, CMS/HCC V28) PAP SMEAR Routine 08/02/2024 12:00 AM EDT Encounter for screening for malignant neoplasm of cervix HIV SCREENING Routine 11/02/2003 from Last 3 Months or Most Recently Relevant to Health Maintenance Results * MR Brain wo and w Contrast (10/05/2024 5:00 PM EDT) Anatomical Region Laterality Modality Head and Neck Magnetic Resonan ce 10/06/2024 12:4 0 PM EDT Impressions 10/06/2024 1:20 PM EDT Stable exam. No residual or recurrent tumor. -------- FINAL REPORT -------- Dictated By: ALESSANDRA HASTINGS Dictated Date: 10/06/2024 12:40 ET Assigned Physician: ALESSANDRA HASTINGS Reviewed and Electronically Signed By: ALESSANDRA HASTINGS Signed Date: 10/06/2024 13:20 ET Workstation ID: [id number] Transcribed By: Self Edit Transcribed Date: 10/06/2024 12:40 ET Narrative 10/06/2024 1:20 PM EDT PROCEDURE: Brain MRI INDICATION: Restaging glioma TECHNIQUE: Multiplanar, multisequence MRI of the brain without and with contrast. 17 mL Dotarem injected intravenously from a 20 mL vial with the remainder discarded COMPARISON: 12/09/2022 and 06/15/2023 FINDINGS: Stable high right frontal parietal craniotomy with underlying resection cavity. T2 hyperintensity and susceptibility artifact around the resection cavity is stable compared to prior. Trace linear enhancement along the lateral and inferior aspect of the resection cavity is unchanged and most likely vascular. No new nodular enhancement around the resection cavity. No acute infarct, mass effect, or intracranial hemorrhage. Patchy T2 hyperintense foci throughout the supratentorial white matter are similar compared to prior and are most likely related to chronic small vessel ischemic change and/or posttreatment change. Sella and foramen magnum are normal. Ventricles are unchanged in size and configuration. No hydrocephalus. Major intracranial arterial flow voids are normal. Major dural venous sinuses enhance normally with contrast. Sinuses and mastoid air cells are clear. Orbits and extra cranial soft tissues are normal. Calvarium is similar compared to prior. No marrow replacing lesions. Procedure Note Alessandra Hastings MD - 10/06/2024 PROCEDURE: Brain MRI INDICATION: Restaging glioma TECHNIQUE: Multiplanar, multisequence MRI of the brain without and withcontrast. 17 mL Dotarem injected intravenously from a 20 mL vial with theremainder discarded COMPARISON: 12/09/2022 and 06/15/2023 FINDINGS: Stable high right frontal parietal craniotomy with underlying resectioncavity. T2 hyperintensity and susceptibility artifact around theresection cavity is stable compared to prior. Trace linear enhancementalong the lateral and inferior aspect of the resection cavity is unchangedand most likely vascular. No new nodular enhancement around the resectioncavity. No acute infarct, mass effect, or intracranial hemorrhage. Patchy T2 hyperintense foci throughout the supratentorial white matter aresimilar compared to prior and are most likely related to chronic smallvessel ischemic change and/or posttreatment change. Sella and foramenmagnum are normal. Ventricles are unchanged in size and configuration. No hydrocephalus. Major intracranial arterial flow voids are normal. Major dural venoussinuses enhance normally with contrast. Sinuses and mastoid air cells are clear. Orbits and extra cranial softtissues are normal. Calvarium is similar compared to prior. No marrowreplacing lesions. IMPRESSION: Stable exam. No residual or recurrent tumor. -------- FINAL REPORT -------- Dictated By: ALESSANDRA HASTINGS Dictated Date: 10/06/2024 12:40 ET Assigned Physician: ALESSANDRA HASTINGS Reviewed and Electronically Signed By: ALESSANDRA HASTINGS Signed Date: 10/06/2024 13:20 ET Workstation ID: [id number] Transcribed By: Self Edit Transcribed Date: 10/06/2024 12:40 ET Renaldo Hdz MD IMG MRI PROCEDURES Final Re sult * Pap smear (08/02/2024 12:00 AM EDT) Interpretation Negative for intraepithelial lesion or malignancy 08/08/2024 2:28 PM EDT [facility] General Categorization Negative 08/08/2024 2:28 PM EDT [facility] LMP 08/08/2024 2:28 PM EDT [facility] Comment:2 weeks Specimen Adequacy Satisfactory for evaluation, endocervical/merchant sformation zone component present 08/08/2024 2:28 PM EDT [facility] Pap Methodology Liquid Based Pap Test 08/08/2024 2:28 PM EDT [facility] Disclaimer The Pap test is a screening test which carries an inherent false negative rate. These test results should be correlated with the patient's clinical findings and history. This Pap test was processed using an automated screening system. Technical cytopathology services provided by [facility], at [address] [place] [address], [place] [address] (CLIA # [id number]/Eden Browne MD, Electronic Service Technician.) 08/08/2024 2:28 PM EDT [facility] Console Pap Interpretation Reported 08/08/2024 2:28 PM EDT [facility] Brushing/Spatula Cervix uteri structure / Unknown 08/02/2024 08/05/2024 7:13 AM EDT Marion Hinojosa MD LAB CYTOLOGY ORDERABLES Final Result [facility] [address] [place] [address], * HIV Screening (11/02/2003) HIV Screening Abstracted Historical Provider HEALTH MAINTENANCE Final Result from Last 3 Months or Most Recently Relevant to Health Maintenance Insurance [facility] PUBLIC PL[employer] [place] [id number] Care Teams Shoe Lacer Relationship Specialty Start Date End Date Marion Hinojosa MD [address] [place] [address] Dr [place] [phone] PCP - General Internal Medicine 01/19/17
== END 2024-10-09 15:51 | disposition home or self-care (01) ==
LOC: HO.ED 15:47
PROVIDERS: Emergency Provider Emergency Medicine; PCP Internal Medicine
DX: S90.415A Abrasion, left lesser toe(s), initial encounter (principal); X58.XXXA Exposure to other specified factors, initial encounter; Y93.89 Activity, other specified; Y92.89 Other specified places as the place of occurrence of the external cause; Y99.8 Other external cause status
CPT/HCPCS: 99281; 99282